=== PATIENT | female | born 1950 | race Caucasian/White ===

== ENCOUNTER 2018-10-01 12:13 | Emergency (ER) | payer MEDICARE, BC ==
[~2018-10-01] VITALS: Ht 154.9 cm; Wt 129.7 kg
[~2018-10-01 12:13] MED LIST: ACTOS PLUS PO; ASPIRIN LOW DOS81 MG PO; CARVEDILOL12.5 MG PO; COLACE100 MG PO; CYMBALTA30 MG PO; GABAPENTIN PO; GLIMEPIRIDE PO; HYDROCODONE PO; NORVASC5 MG PO; OXYBUTYNIN PO; QUINIPRIL; REMICADE INFUSION; SIMVASTATIN PO; SULINDAC200 MG PO; [UNRECOGNIZED DRUG - OTHER]; [UNRECOGNIZED DRUG - OTHER] PO; [UNRECOGNIZED DRUG - OTHER] PO; [UNRECOGNIZED DRUG - OTHER] PO
--- OUTSIDE RECORDS SUMMARY | 2018-10-01 12:20 | XMS REPORT | Continuity of Care Document ---
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 Phone [facility] [employer] Unavailable Unavailable Problems Problem Status Onset Date Classification Date Reported Comments Source 4644 MORBID OBESITY DIABETES HYPERTENSIO Active 11/02/2014 [facility] [id number], REFLUX Active 10/06/2014 [facility] Anxiety Active Problem 11/28/2014 [facility] Apnea, sleep Resolved Problem 11/28/2014 [facility] BMI 30+ - obesity Resolved Problem 11/28/2014 [facility] BP+ - Hypertension Resolved Problem 11/28/2014 [facility] Diabetes Resolved Problem 11/28/2014 [facility] Explanation of expected sequence of events Active Problem 11/28/2014 [facility] FH: hyperlipidemia Resolved Problem 11/28/2014 [facility] ADMINISTRTVE ENCOUNT NOS Active [facility] Medications Medication Details Route Status Patient Instructions Ordering Provider Order Date Source Cinnamon 500 mg oral capsule 1,000 mg=2 cap, PO, BID, # 100 cap, 0 Refill(s) Inactive 11/25/2014 [facility] simvastatin 40 mg oral tablet 40 mg=1 tab, PO, Bedtime, 0 Refill(s) Inactive 11/25/2014 [facility] carvedilol 6.25 mg, PO, BID, 0 Refill(s) Inactive 11/25/2014 [facility] Fish Oil 1000 mg oral capsule 1,000 mg=1 cap, PO, TID, 0 Refill(s) Inactive 11/25/2014 [facility] Docusate Sodium 100 MG Oral Capsule [Colace] 100 mg=1 cap, PO, Daily, 0 Refill(s) Active 11/25/2014 [facility] Potassium Chloride 10 MEQ Extended Release Tablet 10 mEq=1 tab, PO, BID, 0 Refill(s) Inactive 11/25/2014 [facility] Acetaminophen 325 MG / Hydrocodone Bitartrate 10 MG Oral Tablet [Celina 10/325] 1 tab, PO, Q6H, 0 Refill(s) Inactive 11/25/2014 [facility] valsartan 160 mg oral tablet 160 mg=1 tab, PO, Daily, 0 Refill(s) Inactive 11/25/2014 [facility] Metformin hydrochloride 850 MG / pioglitazone 15 MG Oral Tablet 1 tab, PO, BID, 0 Refill(s) Inactive 11/25/2014 [facility] Reglan 10 mg, 2 mL, Route: IVP, Drug form: INJ, Q6H, Dosing Weight 143.182, kg, PRN Nausea & Vomiting, Start date: 11/24/14 17:36:00, Duration: 30 day, Stop date: 12/24/14 17:35:00Notes: (Same as: Reglan) No Longer Active 11/24/2014 [facility] Lactated Ringers Injection IV 1,000 mL 1,000 mL, Rate: 80 ml/hr, Infuse over: 12.5 hr, Route: IV, Dosing Weight 143.182 kg, Total Volume: 1,000, Start date: 11/24/14 13:51:00, Duration: 30 day, Stop date: 12/24/14 13:50:00 No Longer Active 11/24/2014 [facility] Protonix 40 mg, Route: IVP, Daily, Dosing Weight 143.182, kg, Start date: 11/24/14 9:00:00, Duration: 30 day, Stop date: 12/23/14 9:00:00 No Longer Active 11/24/2014 [facility] Enoxaparin 30 mg, 0.3 mL, Route: SUB-Q, Drug form: INJ, Q12H, Dosing Weight 143.182, kg, Start date: 11/24/14 2:00:00, Duration: 30 day, Stop date: 12/23/14 21:00:00Notes: (Same as: Lovenox) No Longer Active 11/24/2014 [facility] Pepcid 20 mg, 2 mL, Route: IVP, Drug form: INJ, Q12H, Start date: 11/23/14 21:00:00, Duration: 30 day, Stop date: 12/23/14 9:00:00Notes: (Same as: Pepcid) Can be dilute in 5-10cc NS IVP: Slow IV push over at least 2 minutes. No Longer Active 11/24/2014 [facility] Hydralazine 10 mg, 0.5 mL, Route: IV, Drug form: INJ, ONCE, Dosing Weight 143.182, kg, Start date: 11/23/14 18:00:00, Stop date: 11/23/14 18:00:00Notes: (Same as: Apresoline) Push over 5 minutes Inactive 11/23/2014 [facility] Ofirmev 1,000 mg, 100 mL, Route: IV, Drug form: INJ, Q6H, Dosing Weight 143.182, kg, for > or=50 kg, Start date: 11/23/14 18:00:00, Duration: 2 day, Stop date: 11/25/14 12:00:00Notes: Infuse over 15 minutes Do not exceed 4gm/day of acetaminophen MEDICATION WASTE Product Size: 1000 mg Product Wasted: ___ mg No Longer Active 11/23/2014 [facility] Metoprolol 5 mg, 5 mL, Route: IVP, Drug form: INJ, Q6H, Dosing Weight 143.182, kg, Start date: 11/23/14 18:00:00, Duration: 30 day, Stop date: 12/23/14 12:00:00Notes: (Same as: Lopressor) Push over 2 minutes No Longer Active 11/23/2014 [facility] Insulin, Aspart, Human 8 unit, 0.08 mL, Route: SUB-Q, Drug form: SOLN, TID-Before Meals, Dosing Weight 143.182, kg, PRN Blood Glucose Results, Start date: 11/23/14 17:18:00, Duration: 30 day, Stop date: 12/23/14 17:17:00Notes: Roll in palms of hands gently; Do not shake vigorously. (Same as: NovoLOG) "single patient use only" Stable for 28 days at room temperature. Expires in days from Date No Longer Active 11/23/2014 [facility] Dextrose 50% Syringe 12.5 gm, 25 mL, Route: IVP, Drug Form: INJ, Dosing Weight 143.182, kg, PRN, PRN Blood Glucose Results, Start date: 11/23/14 17:18:00, Duration: 30 day, Stop date: 12/23/14 17:17:00 No Longer Active 11/23/2014 [facility] Glucagon 1 mg, Route: IM, Drug form: PDR/INJ, PRN, Dosing Weight 143.182, kg, PRN Blood Glucose Results, Start date: 11/23/14 17:18:00, Duration: 30 day, Stop date: 12/23/14 17:17:00 No Longer Active 11/23/2014 [facility] gabapentin 800 MG Oral Tablet 800 mg, 2 cap, Route: PO, Drug form: CAP, BID, Dosing Weight 143.182, kg, Start date: 11/23/14 17:00:00, Duration: 30 day, Stop date: 12/23/14 9:00:00Notes: (Same as: Neurontin) No Longer Active 11/23/2014 [facility] tramadol hydrochloride 50 MG Oral Tablet 50 mg=1 tab, PO, Q6H, PRN See Nurse's Notes | Pain Score 3-6, # 40 tab, 0 Refill(s) Active 11/23/2014 [facility] Hydromorphone 15 mg, 30 mL, Route: IV, Initial Loading Dose: 0.4mg, [employer] Dose: 0.2 mg, [employer] Lockout: 10 minutes, Continuous Basal Rate: 0 mg, 4 Hour Limit (In MG): 6, Drug Form: INJ, Continuous, Start date: 11/23/14 14 :00:00, Duration: 30 day, Stop date: 12/23/14 13:...Notes: (Same as: Dilaudid) conc=0.5 mg/ml Hydromorphone [employer] Dose: ;Delay: ;Basal: No Longer Active 11/23/2014 [facility] Sodium Chloride 0.9% IV 25 mL, Route: IV, Start date: 11/23/14 13:49:00, Duration: 30 day, Stop date: 12/23/14 13:48:00, PRN Line Flush No Longer Active 11/23/2014 [facility] BD Normal Saline Flush 10 mL, Route: IV, Drug Form: INJ, PRN, PRN Line Flush, Start date: 11/23/14 13:49:00, Duration: 30 day, Stop date: 12/23/14 13:48:00Notes: (Same as: BD Posiflush) No Longer Active 11/23/2014 [facility] Naloxone 0.04 mg, 0.1 mL, Route: IVP, Drug form: INJ, Q2MIN, Dosing Weight 143.182, kg, PRN Narcotic Reversal, Start date: 11/23/14 13:37:00, Duration: 30 day, Stop date: 12/23/14 13:36:00Notes: Same as Narcan No Longer Active 11/23/2014 [facility] Hydromorphone 0.5 mg, 0.25 mL, Route: IV, Drug form: INJ, Q3H, Dosing Weight 143.182, kg, PRN Pain Score 7-10, Start date: 11/23/14 13:37:00, Duration: 30 day, Stop date: 12/23/14 13:36:00Notes: (Same as: Dilaudid) No Longer Active 11/23/2014 [facility] tramadol hydrochloride 50 MG Oral Tablet 50 mg, 1 tab, Route: PO, Drug form: TAB, Q6H, Dosing Weight 143.182, kg, PRN See Nurse's Notes, Start date: 11/23/14 13:37:00, Stop date: 12/23/14 13:36:00, Pain Score 3-6Notes: Not to exceed 400mg/day. (Same As: Ultram) No Longer Active 11/23/2014 [facility] Ondansetron 4 mg, 2 mL, Route: IVP, Drug form: INJ, Q6H, Dosing Weight 143.182, kg, PRN Nausea & Vomiting, Start date: 11/23/14 13:37:00, Duration: 30 day, Stop date: 12/23/14 13:36:00Notes: (Same as: Zofran) MEDICATION WASTE Product Size: 4 mg Product Wasted: ___ mg No Longer Active 11/23/2014 [facility] Calcium Chloride 0.0014 MEQ/ML / Potassium Chloride 0.004 MEQ/ML / Sodium Chloride 0.103 MEQ/ML / Sodium Lactate 0.028 MEQ/ML Injectable Solution 1,000 mL, Rate: 125 ml/hr, Infuse over: 8 hr, Route: IV, Dosing Weight 143.182 kg, Total Volume: 1,000, Start date: 11/23/14 13:37:00, Stop date: 11/24/14 13:36:00 No Longer Active 11/23/2014 [facility] Albuterol 0.83 MG/ML Inhalant Solution 2.49 mg, 3 mL, Route: NEB, Drug form: SOLN, PRN, Dosing Weight 143.182, kg, PRN Respiratory Protocol, Start date: 11/23/14 11:08:00, Duration: 30 day, Stop date: 12/23/14 11:07:00Notes: SEE RT DOCUMENTATION (Same as: Proventil) Inactive 11/23/2014 [facility] Midazolam 1 mg, 1 mL, Route: IVP, Drug form: INJ, Q5Min, Dosing Weight 143.182, kg, PRN Anxiety, Start date: 11/23/14 11:08:00, Duration: 2 doses or times, Stop date: Limited # of timesNotes: (Same as: Versed) MEDICATION WASTE Product Size: 2 mg Product Wasted: ___ mg Inactive 11/23/2014 [facility] Ondansetron 4 mg, 2 mL, Route: IVP, Drug form: INJ, ONCE, Dosing Weight 143.182, kg, PRN Nausea & Vomiting, Start date: 11/23/14 11:08:00Notes: (Same as: Vicki) MEDICATION WASTE Product Size: 4 mg Product Wasted: ___ mg Inactive 11/23/2014 [facility] Dexamethasone 4 mg, 1 mL, Route: IVP, Drug form: INJ, ONCE, Dosing Weight 143.182, kg, PRN Nausea & Vomiting, Start date: 11/23/14 11:08:00Notes: Concentration: 4mg/ml Inactive 11/23/2014 [facility] Diphenhydramine 12.5 mg, 0.25 mL, Route: IVP, Drug form: INJ, Q6H, Dosing Weight 143.182, kg, PRN Itching, Start date: 11/23/14 11:08:00, Duration: 30 day, Stop date: 12/23/14 11:07:00Notes: (Same as: Benadryl) Inactive 11/23/2014 [facility] Ephedrine 5 mg, 1 mL, Route: IVP, Drug form: INJ, Q5Min, Dosing Weight 143.182, kg, PRN Low Blood Pressure, Start date: 11/23/14 11:08:00, Duration: 30 day, Stop date: 12/23/14 11:07:00Notes: final concentrati on 5 mg/mL Inactive 11/23/2014 [facility] Naloxone 0.04 mg, 0.1 mL, Route: IVP, Drug form: INJ, Q2MIN, Dosing Weight 143.182, kg, PRN Narcotic Reversal, Start date: 11/23/14 11:08:00, Duration: 8 doses or times, Stop date: Limited # of timesNotes: Same as Narcan Inactive 11/23/2014 [facility] Meperidine 12.5 mg, 0.25 mL, Route: IVP, Drug form: INJ, Q30Min, Dosing Weight 143.182, kg, PRN Other -See Comment, For shivering, Start date: 11/23/14 11:08:00, Duration: 2 doses or times, Stop date: Limited # of timesNotes: (Same As: Demerol) Inactive 11/23/2014 [facility] Sodium Chloride 0.154 MEQ/ML Injectable Solution 1,000 mL, Rate: 125 ml/hr, Infuse over: 8 hr, Route: IV, Dosing Weight 143.182 kg, Total Volume: 1,000, Start date: 11/23/14 11:08:00, Duration: 30 day, Stop date: 12/23/14 11:07:00 Inactive 11/23/2014 [facility] Racepinephrine 11.25 mg, 0.5 mL, Route: NEB, Drug Form: SOLN, Dosing Weight 143.182, kg, PRN, PRN Shortness of breath, Start date: 11/23/14 11:08:00, Duration: 30 day, Stop date: 12/23/14 11:07:00Notes: (racepinephrine *2.25% inh 0.5ml SOLN) (Same as:S2) Inactive 11/23/2014 [facility] Morphine 2 mg, 0.2 mL, Route: IVP, Drug form: INJ, Q5Min, Dosing Weight 143.182, kg, PRN Pain Score 4-6, Start date: 11/23/14 11:08:00, Duration: 5 doses or times, Stop date: Limited # of timesNotes: (Same as :MORPhine Sulfate) Inactive 11/23/2014 [facility] Fentanyl 25 microgram, 0.5 mL, Route: IVP, Drug form: INJ, Q5Min, Dosing Weight 143.182, kg, PRN Pain Score 4-6, Start date: 11/23/14 11:08:00, Duration: 4 doses or times, Stop date: Limited # of timesNotes: (Same as: Sublimaze) Preservative free. Inactive 11/23/2014 [facility] Hydromorphone 0.5 mg, 0.25 mL, Route: IVP, Drug form: INJ, Q5Min, Dosing Weight 143.182, kg, PRN Pain Score 7-10, Start date: 11/23/14 11:08:00, Duration: 4 doses or times, Stop date: Limited # of timesNotes: (Same as: Dilaudid) Inactive 11/23/2014 [facility] Labetalol 10 mg, 2 mL, Route: IVP, Drug form: INJ, Q5Min, Dosing Weight 143.182, kg, PRN Elevated BP, Start date: 11/23/14 11:08:00, Duration: 5 doses or times, Stop date: Limited # of timesNotes: (Same as: Normmili dynadam, Trandate) Push over 2 minutes Give bolus over 2-3 minutes. Inactive 11/23/2014 [facility] Acetaminophen 1,000 mg, 100 mL, Route: IVPB, Drug form: INJ, ONCE, Dosing Weight 143.182, kg, PRN Pain Score 1-3, Start date: 11/23/14 11:08:00, Duration: 1 doses or times, Stop date: Limited # of timesNotes: Infuse over 15 minutes Do not exceed 4gm/day of acetaminophen MEDICATION WASTE Product Size: 1000 mg Product Wasted: ___ mg Inactive 11/23/2014 [facility] gabapentin 800 MG Oral Tablet 800 mg=1 tab, PO, BID, 0 Refill(s) Active 11/23/2014 [facility] Hydrochlorothiazide 25 MG / valsartan 160 MG Oral Tablet 1 tab, PO, Daily, 0 Refill(s) Inactive 11/23/2014 [facility] carvedilol 6.25 mg oral tablet 6.25 mg=1 tab, PO, BID, 0 Refill(s) Inactive 11/23/2014 [facility] Ancef 3 gm, 100 mL, Route: IVPB, Drug form: INJ, PRE OP, Start date: 11/23/14 6:00:00, Stop date: 11/23/14 23:00:00Notes: Same as: Ancef No Longer Active 11/23/2014 [facility] Allergies, Adverse Reactions, Alerts Substance Category Reaction Severity Reaction type Status Date Reported Comments Source codeine Assertion Drug allergy Active [facility] quinapril Assertion Drug allergy Active [facility] Immunizations No Data Provided for This Section Results Order Name Results Value Reference Range Date Interpretation Comments Source ELECTROLYTES AGAP 12.9 10.0 - 20.0 11/24/2014 [facility] ELECTROLYTES Glucose Lvl 124 70 - 99 11/24/2014 [facility] ELECTROLYTES BUN 15 7 - 22 11/24/2014 [facility] ELECTROLYTES CO2 26 24 - 32 11/24/2014 [facility] ELECTROLYTES Calcium Lvl 8.3 8.5 - 10.5 11/24/2014 [facility] ELECTROLYTES Potassium Lvl 3.9 3.5 - 5.1 11/24/2014 [facility] ELECTROLYTES Chloride Lvl 106 95 - 109 11/24/2014 [facility] ELECTROLYTES eGFR 67 11/24/2014 Result Comment: The eGFR is calculated using the CKD-EPI formula. In most young, healthy individuals the eGFR will be >90 mL/min/1.73m2. The eGFR declines with age. An eGFR of 60-89 may be normal in some populations, particularly the elderly, for whom the CKD-EPI formula has not been extensively validated. Use of the eGFR is not recommended in the following populations:

Individuals with unstable creatinine concentrations, including patients and those with serious co-morbid conditions.

Patients with extremes in muscle mass or diet.

The data above are obtained from the National Kidney Disease Education Program (NKDEP) which additionally recommends that when the eGFR is used in patients with extremes of body mass index for purposes of drug dosing, the eGFR should be multiplied by the estimated BMI. [facility] ELECTROLYTES Creatinine Lvl 0.9 0.5 - 1.4 11/24/2014 [facility] ELECTROLYTES Sodium Lvl 141 135 - 145 11/24/2014 [facility] HEMATOLOGY Hct 30.5 36.0 - 48.0 11/24/2014 [facility] HEMATOLOGY WBC 8.6 3.7 - 10.4 11/24/2014 [facility] HEMATOLOGY MCV 76.7 80.0 - 98.0 11/24/2014 [facility] HEMATOLOGY Hgb 9.6 12.0 - 16.0 11/24/2014 [facility] HEMATOLOGY RBC 3.98 4.20 - 5.40 11/24/2014 [facility] HEMATOLOGY MCHC 31.5 32.0 - 36.0 11/24/2014 [facility] HEMATOLOGY MCH 24.2 27.0 - 31.0 11/24/2014 [facility] HEMATOLOGY MPV 9.7 7.4 - 10.4 11/24/2014 [facility] HEMATOLOGY Platelet 163 133 - 450 11/24/2014 [facility] HEMATOLOGY RDW 17.7 11.5 - 14.5 11/24/2014 [facility] HEMATOLOGY Segs 75.9 45.0 - 75.0 11/24/2014 [facility] HEMATOLOGY Lymphocytes # 1.3 1.0 - 5.5 11/24/2014 [facility] HEMATOLOGY Monocytes 7.4 2.0 - 12.0 11/24/2014 [facility] HEMATOLOGY Segs-Bands # 6.5 1.5 - 8.1 11/24/2014 [facility] HEMATOLOGY Basophils 0.1 0.0 - 1.0 11/24/2014 [facility] HEMATOLOGY Lymphocytes 15.5 20.0 - 40.0 11/24/2014 [facility] HEMATOLOGY Eosinophils 1.1 0.0 - 4.0 11/24/2014 [facility] HEMATOLOGY Microcyte 1+ *ABN* (11/24/14 4:11 AM) None Seen 11/24/2014 [facility] HEMATOLOGY Eosinophils # 0.1 0.0 - 0.5 11/24/2014 [facility] HEMATOLOGY Monocytes # 0.6 0.0 - 0.8 11/24/2014 [facility] CARDIAC ENZYMES CK MB Index 1.0 0.0 - 2.5 11/23/2014 [facility] CARDIAC ENZYMES CK MB 2.2 0.5 - 3.6 11/23/2014 [facility] CARDIAC ENZYMES Troponin-I <0.02 0.00 - 0.40 11/23/2014 [facility] CARDIAC ENZYMES Total CK 210 12 - 191 11/23/2014 [facility] BLOOD BANK RESULTS Antibody Scrn Negative (11/23/14 10:11 AM) 11/23/2014 [facility] BLOOD BANK RESULTS ABO/Rh O POS 11/23/2014 [facility] CHEM PANEL Vitamin D, 25-OH, Total 16 30 - 100 11/09/2014 [facility] CHEM PANEL B/C Ratio 31 6 - 25 11/09/2014 [facility] CHEM PANEL AGAP 11.9 10.0 - 20.0 11/09/2014 [facility] CHEM PANEL Globulin 4.2 2.0 - 4.0 11/09/2014 [facility] CHEM PANEL A/G Ratio 0.9 0.7 - 1.6 11/09/2014 [facility] CHEM PANEL Albumin Lvl 3.8 3.5 - 5.0 11/09/2014 [facility] CHEM PANEL Glucose Lvl 66 70 - 99 11/09/2014 [facility] CHEM PANEL CO2 26 24 - 32 11/09/2014 [facility] CHEM PANEL BUN 31 7 - 22 11/09/2014 [facility] CHEM PANEL Bili Total 0.3 0.2 - 1.3 11/09/2014 [facility] CHEM PANEL Alk Phos 84 39 - 136 11/09/2014 [facility] CHEM PANEL Total Protein 8.0 6.4 - 8.4 11/09/2014 [facility] CHEM PANEL ALT 16 0 - 65 11/09/2014 [facility] CHEM PANEL AST 9 0 - 37 11/09/2014 [facility] CHEM PANEL eGFR 60 11/09/2014 Result Comment: The eGFR is calculated using the CKD-EPI formula. In most young, healthy individuals the eGFR will be >90 mL/min/1.73m2. The eGFR declines with age. An eGFR of 60-89 may be normal in some populations, particularly the elderly, for whom the CKD-EPI formula has not been extensively validated. Use of the eGFR is not recommended in the following populations:

Individuals with unstable creatinine concentrations, including patients and those with serious co-morbid conditions.

Patients with extremes in muscle mass or diet.

The data above are obtained from the National Kidney Disease Education Program (NKDEP) which additionally recommends that when the eGFR is used in patients with extremes of body mass index for purposes of drug dosing, the eGFR should be multiplied by the estimated BMI. [facility] CHEM PANEL Calcium Lvl 8.8 8.5 - 10.5 11/09/2014 [facility] CHEM PANEL Chloride Lvl 108 95 - 109 11/09/2014 [facility] CHEM PANEL Creatinine Lvl 1.0 0.5 - 1.4 11/09/2014 [facility] CHEM PANEL Sodium Lvl 142 135 - 145 11/09/2014 [facility] CHEM PANEL Potassium Lvl 3.9 3.5 - 5.1 11/09/2014 [facility] HEMATOLOGY PTT 31.3 22.9 - 35.8 11/09/2014 [facility] HEMATOLOGY PT 13.1 12.0 - 14.7 11/09/2014 [facility] HEMATOLOGY INR 0.99 0.85 - 1.17 11/09/2014 [facility] HEMATOLOGY RDW 17.3 11.5 - 14.5 11/09/2014 [facility] MCHC 31.0 32.0 - 36.0 11/09/2014 [facility] HEMATOLOGY Platelet 247 133 - 450 11/09/2014 [facility] HEMATOLOGY MPV 9.1 7.4 - 10.4 11/09/2014 [facility] HEMATOLOGY MCV 77.7 80.0 - 98.0 11/09/2014 [facility] HEMATOLOGY MCH 24.1 27.0 - 31.0 11/09/2014 [facility] HEMATOLOGY Hgb 9.9 12.0 - 16.0 11/09/2014 [facility] HEMATOLOGY Hct 31.8 36.0 - 48.0 11/09/2014 [facility] HEMATOLOGY WBC 7.8 3.7 - 10.4 11/09/2014 [facility] HEMATOLOGY RBC 4.09 4.20 - 5.40 11/09/2014 [facility] HEMATOLOGY Eosinophils # 0.3 0.0 - 0.5 11/09/2014 [facility] HEMATOLOGY Monocytes # 0.7 0.0 - 0.8 11/09/2014 [facility] HEMATOLOGY Microcyte 1+ *ABN* (11/09/14 2:43 PM) None Seen 11/09/2014 [facility] HEMATOLOGY Basophils # 0.0 0.0 - 0.2 11/09/2014 [facility] HEMATOLOGY Lymphocytes 27.7 20.0 - 40.0 11/09/2014 [facility] HEMATOLOGY Segs 59.2 45.0 - 75.0 11/09/2014 [facility] HEMATOLOGY Basophils 0.3 0.0 - 1.0 11/09/2014 [facility] HEMATOLOGY Segs-Bands # 4.6 1.5 - 8.1 11/09/2014 [facility] HEMATOLOGY Lymphocytes # 2.2 1.0 - 5.5 11/09/2014 [facility] HEMATOLOGY Monocytes 8.4 2.0 - 12.0 11/09/2014 [facility] HEMATOLOGY Eosinophils 4.4 0.0 - 4.0 11/09/2014 [facility] PARATHYROID PROFILE PTH Intact 67.4 11.1 - 79.5 11/09/2014 [facility] SPECIAL CHEMISTRY Hgb A1C 6.4 <=5.6 % 11/09/2014 [facility] URINE AND STOOL UA Urobilinogen <=1.0 mg/dL 0.1 - 1.0 11/09/2014 [facility] URINE AND STOOL Micro? Performed *NA* (11/09/14 2:43 PM) 11/09/2014 [facility] URINE AND STOOL UA Sq Epi Few /LPF Few /LPF 11/09/2014 [facility] URINE AND STOOL UA Leuk Est Negative (11/09/14 2:43 PM) Negative 11/09/2014 [facility] URINE AND STOOL UA Nitrite Negative (11/09/14 2:43 PM) Negative 11/09/2014 [facility] URINE AND STOOL UA Bacteria Occasional /HPF None Seen /HPF 11/09/2014 [facility] URINE AND STOOL UA Hyal Cast 3 0 - 2 11/09/2014 [facility] URINE AND STOOL UA Mucus Few /LPF None Seen /LPF 11/09/2014 [facility] URINE AND STOOL UA Protein Negative mg/dL Negative mg/dL 11/09/2014 [facility] URINE AND STOOL UA pH 5.0 5.0 - 8.0 11/09/2014 [facility] URINE AND STOOL UA Spec Grav 1.015 <=1.030 11/09/2014 [facility] URINE AND STOOL UA Bili Negative *NA* (11/09/14 2:43 PM) Negative 11/09/2014 [facility] [facility] URINE AND STOOL UA Ketones Negative mg/dL Negative mg/dL 11/09/2014 [facility] URINE AND STOOL UA Glucose Negative mg/dL Negative mg/dL 11/09/2014 [facility] URINE AND STOOL UA Blood Negative (11/09/14 2:43 PM) Negative 11/09/2014 [facility] URINE AND STOOL UA WBC 1 0 - 5 11/09/2014 [facility] URINE AND STOOL UA Color Yellow *NA* (11/09/14 2:43 PM) Yellow 11/09/2014 [facility] URINE AND STOOL UA Turbidity Slight *ABN* (11/09/14 2:43 PM) Clear 11/09/2014 [facility] Pathology Reports No Data Provided for This Section Diagnostic Reports Report Value Date Source Chest 2 views DX Exam: Two-view chest x-ray Reason for Exam: Coughing Comparison Exam: None Discussion: Cardiomediastinal silhouette is within normal limits. Both hemidiaphragms well visualized. Mild central vascular congestion. No appreciable pleural effusion. No focal lung consolidations. Trachea is midline. Mild multilevel degenerative disc disease seen within the thoracic spine. Impression: 1. Mild central vascular congestion. 11/09/2014 [facility] Consultation Notes No Data Provided for This Section Discharge Summaries No Data Provided for This Section History and Physicals No Data Provided for This Section Vital Signs Vital Sign Value Date Comments Source Temperature Oral (F) 98.2 F 11/25/2014 [facility] Heart Rate 80 11/25/2014 [facility] Respitory Rate 18 11/25/2014 [facility] Systolic (mm Hg) 145 11/25/2014 [facility] Diastolic (mm Hg) 78 11/25/2014 [facility] Systolic (mm Hg) 144 11/25/2014 [facility] Diastolic (mm Hg) 59 11/25/2014 [facility] Respitory Rate 18 11/25/2014 [facility] Heart Rate 67 11/25/2014 [facility] Temperature Oral (F) 97.6 F 11/25/2014 [facility] Systolic (mm Hg) 150 11/25/2014 [facility] Diastolic (mm Hg) 74 11/25/2014 [facility] Respitory Rate 18 11/25/2014 [facility] Temperature Oral (F) 98.3 F 11/25/2014 [facility] Heart Rate 78 11/25/2014 [facility] Height 154.94 cm 11/09/2014 [facility] Weight 143.182 11/09/2014 [facility] BMI Calculated 59.64 11/09/2014 [facility] Encounters Location Location Details Encounter Type Encounter Number Reason For Visit Attending Provider ADM Date DC Date Status Source [facility] Inpatient [id number] Ismael Krause 11/23/2014 11/25/2014 [facility] Procedures Procedure Code Date Perfomer Comments Source Gastric bypass operation [id number] 11/23/2014 [facility] Cholecystectomy [id number] [facility] Assessment and Plan Assessment and Plan Date Source Extracted from:Title: Surgery Note Author: Luís Brunner (Fellow) Date: 11/25/14 Progress Daily [facility] Completed: , NOV 25, 2014, 06:18 by Luís Brunner (Fellow) RM: [id number] - [id number], [id number] ANDREA, JOEY WHITT 64y (: 1950) F Attending: Ismael Krause MD Service: General Surgery Service Reason for Admission: 4644 MORBID OBESITY DIABETES HYPERTENSION Working DRG: Other factors influencing health status Code status: Full Code [Ordered] Current diet: Isolation: None Documented Allergies: quinapril, codeine SUBJECTIVE Pt doing better this AM than yesterday. Pain controlled. No further nausea, and no episodes of emesis. No F/S/C. Tolerating fulls. +amb, +urination. OBJECTIVE Gen: AAOx3, NAD CV: RRR Lungs: Symmetric expansion, non-labored Abd: Soft, ND, ATTP. No guarding or rebound. Inc sites C/D/I Ext: No C/C/E ASSESSMENT and EXAM 64 y/o female s/p LRYGB (POD #2) - Pain - HTN, NIDDM, HLD, ALEX PLAN and TREATMENT - Pain controlled with PO pain meds. - Tolerating full liquids. - Pertinent home meds restarted. - Dispo. Plan to D/C pt home later today. 11/25/2014 [facility] Plan of Care No Data Provided for This Section Social History Social History Date Source Social History TypeResponse Smoking Status Never smoker; Exposure to Tobacco Smoke None; Cigarette Smoking Last 365 Days No; Reg Smoking Cessation Counseling No 11/23/2014 [facility] Family History No Data Provided for This Section Advance Directives No Data Provided for This Section Functional Status No Data Provided for This Section
--- OUTSIDE RECORDS SUMMARY | 2018-10-01 12:21 | XMS REPORT | Summary of Care ---
Author Author [facility] Organization [facility] Address Unknown Phone Unavailable Encounter RUSH Plascencia(ANDRE) [id number] Date(s): 11/23/14 - 11/25/14 [id number] [place] [address]- Discharge Disposition: Home Attending Physician: Ismael Krause MD Admitting Physician: Ismael Krause MD Referring Physician: Ismael Krause MD Vital Signs 1 2 3 Most recent to oldest [Reference Range]: 154.94 cm (11/09/14 1:23 PM) Height 1 2 3 Most recent to oldest [Reference Range]: 98.2 DegF (11/25/14 8:00 AM) 97.6 DegF (11/25/14 4:00 AM) 98.3 DegF (11/25/14 12:00 AM) Temperature Oral [96.4-99.1 DegF] 1 2 3 Most recent to oldest [Reference Range]: 145/78 mmHg *HI* (11/25/14 8:00 AM) 144/59 mmHg *HI* (11/25/14 4:00 AM) 150/74 mmHg *HI* (11/25/14 12:00 AM) Blood Pressure [90-140/60-90 mmHg] 1 2 3 Most recent to oldest [Reference Range]: 18 BRMIN (11/25/14 8:00 AM) 18 BRMIN (11/25/14 4:00 AM) 18 BRMIN (11/25/14 12:00 AM) Respiratory Rate [14-20 BRMIN] 1 2 3 Most recent to oldest [Reference Range]: 80 bpm (11/25/14 8:00 AM) 67 bpm (11/25/14 4:00 AM) 78 bpm (11/25/14 12:00 AM) Peripheral Pulse Rate [60-100 bpm] 1 2 3 Most recent to oldest [Reference Range]: 143.182 kg (11/09/14 1:23 PM) Weight 1 2 3 Most recent to oldest [Reference Range]: 59.64 m2 (11/09/14 1:23 PM) Body Mass Index Problem List Condition Effective Dates Status Health Status Informant Anxiety(Confirmed) Active Apnea, Resolved sleep(Confirmed) BMI 30+ - Resolved obesity(Confirmed) BP+ - Resolved Hypertension(Confirm ed) Diabetes(Confirmed) Resolved Explanation of Active expected sequence of events(Confirmed) FH: Resolved hyperlipidemia(Confi rmed) Allergies, Adverse Reactions, Alerts Substance Reaction Severity Status codeine Active quinapril Active Medications acetaminophen 1,000 mg, 100 mL, Route: IVPB, Drug form: INJ, ONCE, Dosing Weight 143.182, kg, PRN Pain Score 1-3, Start date: 11/23/14 11:08:00, Duration: 1 doses or times, S top date: Limited # of times Notes: Infuse over 15 minutesDo not exceed 4gm/day of acetaminophen MEDICAT ION WASTE Product Size: 1000 mgProduct Wasted: ___ mg Start Date: 11/23/14 Stop Date: 11/23/14 Status: Discontinued albuterol 0.083% inhalation solution 2.49 mg, 3 mL, Route: NEB, Drug form: SOLN, PRN, Dosing Weight 143.182, kg, PRN Respiratory Protocol, Start date: 11/23/14 11:08:00, Duration: 30 day, Stop date : 12/23/14 11:07:00 Notes: SEE RT DOCUMENTATION (Same as: Proventil) Start Date: 11/23/14 Stop Date: 11/23/14 Status: Discontinued albuterol 0.083% inhalation solution 2.49 mg, 3 mL, Route: NEB, Drug form: SOLN, Q20Min, Dosing Weight 143.182, kg, P RN Wheezing, Priority: STAT, Start date: 11/23/14 11:08:00, Duration: 30 day, St op date: 12/23/14 11:07:00 Notes: SEE RT DOCUMENTATION (Same as: Proventil) Start Date: 11/23/14 Stop Date: 11/23/14 Status: Discontinued Ancef 3 gm, 100 mL, Route: IVPB, Drug form: INJ, PRE OP, Start date: 11/23/14 6:00:00, Stop date: 11/23/14 23:00:00 Notes: Same as: Ancef Start Date: 11/23/14 Stop Date: 11/25/14 Status: Discontinued BD Normal Saline Flush 10 mL, Route: IV, Drug Form: INJ, PRN, PRN Line Flush, Start date: 11/23/14 13:4 9:00, Duration: 30 day, Stop date: 12/23/14 13:48:00 Notes: (Same as: BD Posiflush) Start Date: 11/23/14 Stop Date: 11/25/14 Status: Discontinued BD Normal Saline Flush 5 mL, Route: IV, Drug Form: INJ, PRN, PRN Line Flush, Start date: 11/23/14 13:49 :00, Duration: 30 day, Stop date: 12/23/14 13:48:00 Notes: (Same as: BD Posiflush) Start Date: 11/23/14 Stop Date: 11/25/14 Status: Discontinued carvedilol 6.25 mg, PO, BID, 0 Refill(s) Start Date: 11/25/14 Stop Date: 11/25/14 Status: Discontinued carvedilol 6.25 mg oral tablet 6.25 mg=1 tab, PO, BID, 0 Refill(s) Start Date: 11/23/14 Stop Date: 11/23/14 Status: Discontinued Cinnamon 500 mg oral capsule 1,000 mg=2 cap, PO, BID, # 100 cap, 0 Refill(s) Start Date: 11/25/14 Stop Date: 11/25/14 Status: Discontinued Colace 100 mg oral capsule 100 mg=1 cap, PO, Daily, 0 Refill(s) Start Date: 11/25/14 Status: Ordered dexamethasone 4 mg, 1 mL, Route: IVP, Drug form: INJ, ONCE, Dosing Weight 143.182, kg, PRN Regan sea & Vomiting, Start date: 11/23/14 11:08:00 Notes: Concentration: 4mg/ml Start Date: 11/23/14 Stop Date: 11/23/14 Status: Discontinued Dextrose 50% Syringe 12.5 gm, 25 mL, Route: IVP, Drug Form: INJ, Dosing Weight 143.182, kg, PRN, PRN Blood Glucose Results, Start date: 11/23/14 17:18:00, Duration: 30 day, Stop idania e: 12/23/14 17:17:00 Start Date: 11/23/14 Stop Date: 11/25/14 Status: Discontinued Dextrose 50% Syringe 25 gm, 50 mL, Route: IVP, Drug Form: INJ, Dosing Weight 143.182, kg, PRN, PRN Bl ood Glucose Results, Start date: 11/23/14 17:18:00, Duration: 30 day, Stop date: 12/23/14 17:17:00 Start Date: 11/23/14 Stop Date: 11/25/14 Status: Discontinued diphenhydrAMINE 12.5 mg, 0.25 mL, Route: IVP, Drug form: INJ, Q6H, Dosing Weight 143.182, kg, [place] N Itching, Start date: 11/23/14 11:08:00, Duration: 30 day, Stop date: 12/23/14 11:07:00 Notes: (Same as: Benadryl) Start Date: 11/23/14 Stop Date: 11/23/14 Status: Discontinued enoxaparin 30 mg, 0.3 mL, Route: SUB-Q, Drug form: INJ, Q12H, Dosing Weight 143.182, kg, St art date: 11/24/14 2:00:00, Duration: 30 day, Stop date: 12/23/14 21:00:00 Notes: (Same as: Lovenox) Start Date: 11/24/14 Stop Date: 11/25/14 Status: Discontinued ePHEDrine 5 mg, 1 mL, Route: IVP, Drug form: INJ, Q5Min, Dosing Weight 143.182, kg, PRN Lo w Blood Pressure, Start date: 11/23/14 11:08:00, Duration: 30 day, Stop date: 11:07:00 Notes: final concentration 5 mg/mL Start Date: 11/23/14 Stop Date: 11/23/14 Status: Discontinued fentaNYL 25 microgram, 0.5 mL, Route: IVP, Drug form: INJ, Q5Min, Dosing Weight 143.182, kg, PRN Pain Score 4-6, Start date: 11/23/14 11:08:00, Duration: 4 doses or time s, Stop date: Limited # of times Notes: (Same as: Sublimaze) Preservative free. Start Date: 11/23/14 Stop Date: 11/23/14 Status: Discontinued Fish Oil 1000 mg oral capsule 1,000 mg=1 cap, PO, TID, 0 Refill(s) Start Date: 11/25/14 Stop Date: 11/25/14 Status: Discontinued gabapentin 400 mg oral capsule 800 mg, 2 cap, Route: PO, Drug form: CAP, BID, Dosing Weight 143.182, kg, Start date: 11/23/14 17:00:00, Duration: 30 day, Stop date: 12/23/14 9:00:00 Notes: (Same as: Neurontin) Start Date: 11/23/14 Stop Date: 11/25/14 Status: Discontinued gabapentin 800 mg oral tablet 800 mg=1 tab, PO, BID, 0 Refill(s) Start Date: 11/23/14 Status: Ordered glucagon 1 mg, Route: IM, Drug form: PDR/INJ, PRN, Dosing Weight 143.182, kg, PRN Blood G lucose Results, Start date: 11/23/14 17:18:00, Duration: 30 day, Stop date: 04/08 17:17:00 Start Date: 11/23/14 Stop Date: 11/25/14 Status: Discontinued hydrALAZINE 10 mg, 0.5 mL, Route: IV, Drug form: INJ, ONCE, Dosing Weight 143.182, kg, Start date: 11/23/14 18:00:00, Stop date: 11/23/14 18:00:00 Notes: (Same as: Apresoline)Push over 5 minutes Start Date: 11/23/14 Stop Date: 11/23/14 Status: Completed hydrochlorothiazide-valsartan 25 mg-160 mg oral tablet 1 tab, PO, Daily, 0 Refill(s) Start Date: 11/23/14 Stop Date: 11/23/14 Status: Discontinued hydromorphone 0.5 mg, 0.25 mL, Route: IV, Drug form: INJ, Q3H, Dosing Weight 143.182, kg, PRN Pain Score 7-10, Start date: 11/23/14 13:37:00, Duration: 30 day, Stop date: 04/08 13:36:00 Notes: (Same as: Dilaudid) Start Date: 11/23/14 Stop Date: 11/25/14 Status: Discontinued hydromorphone 0.5 mg, 0.25 mL, Route: IVP, Drug form: INJ, Q5Min, Dosing Weight 143.182, kg, P RN Pain Score 7-10, Start date: 11/23/14 11:08:00, Duration: 4 doses or times, S top date: Limited # of times Notes: (Same as: Dilaudid) Start Date: 11/23/14 Stop Date: 11/23/14 Status: Discontinued HYDROmorphone 0.5mg/mL MACARONI MAKER (15mg/30 mL) 15 mg 15 mg, 30 mL, Route: IV, Initial Loading Dose: 0.4mg, MACARONI MAKER Dose: 0.2 mg, MACARONI MAKER Lock out: 10 minutes, Continuous Basal Rate: 0 mg, 4 Hour Limit (In MG): 6, Drug Form : INJ, Continuous, Start date: 11/23/14 14:00:00, Duration: 30 day, Stop date: 13:... Notes: (Same as: Dilaudid) conc=0.5 mg/mlHydromorphone MACARONI MAKER Dose: ;Delay: ;Basal: Start Date: 11/23/14 Stop Date: 11/24/14 Status: Discontinued insulin aspart 8 unit, 0.08 mL, Route: SUB-Q, Drug form: SOLN, TID-Before Meals, Dosing Weight 143.182, kg, PRN Blood Glucose Results, Start date: 11/23/14 17:18:00, Duration: 30 day, Stop date: 12/23/14 17:17:00 Notes: Roll in palms of hands gently; Do not shake vigorously. (Same as: NovoLO G)"single patient use only" Stable for 28 days at room temperature.Expires in _ ____ days from Date Start Date: 11/23/14 Stop Date: 11/25/14 Status: Discontinued insulin aspart 10 unit, 0.1 mL, Route: SUB-Q, Drug form: SOLN, TID-Before Meals, Dosing Weight 143.182, kg, PRN Blood Glucose Results, Start date: 11/23/14 17:18:00, Duration: 30 day, Stop date: 12/23/14 17:17:00 Notes: Roll in palms of hands gently; Do not shake vigorously. (Same as: NovoLO G)"single patient use only" Stable for 28 days at room temperature.Expires in _ ____ days from Date Start Date: 11/23/14 Stop Date: 11/25/14 Status: Discontinued insulin aspart 4 unit, 0.04 mL, Route: SUB-Q, Drug form: SOLN, TID-Before Meals, Dosing Weight 143.182, kg, PRN Blood Glucose Results, Start date: 11/23/14 17:18:00, Duration: 30 day, Stop date: 12/23/14 17:17:00 Notes: Roll in palms of hands gently; Do not shake vigorously. (Same as: NovoLO G)"single patient use only" Stable for 28 days at room temperature.Expires in _ ____ days from Date Start Date: 11/23/14 Stop Date: 11/25/14 Status: Discontinued insulin aspart 6 unit, 0.06 mL, Route: SUB-Q, Drug form: SOLN, TID-Before Meals, Dosing Weight 143.182, kg, PRN Blood Glucose Results, Start date: 11/23/14 17:18:00, Duration: 30 day, Stop date: 12/23/14 17:17:00 Notes: Roll in palms of hands gently; Do not shake vigorously. (Same as: NovoLO G)"single patient use only" Stable for 28 days at room temperature.Expires in _ ____ days from Date Start Date: 11/23/14 Stop Date: 11/25/14 Status: Discontinued insulin aspart 2 unit, 0.02 mL, Route: SUB-Q, Drug form: SOLN, TID-Before Meals, Dosing Weight 143.182, kg, PRN Blood Glucose Results, Start date: 11/23/14 17:18:00, Duration: 30 day, Stop date: 12/23/14 17:17:00 Notes: Roll in palms of hands gently; Do not shake vigorously. (Same as: Renny Alarcon)"single patient use only" Stable for 28 days at room temperature.Expires in _ ____ days from Date Start Date: 11/23/14 Stop Date: 11/25/14 Status: Discontinued labetalol 10 mg, 2 mL, Route: IVP, Drug form: INJ, Q5Min, Dosing Weight 143.182, kg, PRN E levated BP, Start date: 11/23/14 11:08:00, Duration: 5 doses or times, Stop date : Limited # of times Notes: (Same as: Normodyne, Trandate)Push over 2 minutes Give bolus over 2-3 mi nutes. Start Date: 11/23/14 Stop Date: 11/23/14 Status: Discontinued Lactated Ringers Injection IV 1,000 mL 1,000 mL, Rate: 80 ml/hr, Infuse over: 12.5 hr, Route: IV, Dosing Weight 143.182 kg, Total Volume: 1,000, Start date: 11/24/14 13:51:00, Duration: 30 day, Stop date: 12/24/14 13:50:00 Start Date: 11/24/14 Stop Date: 11/25/14 Status: Discontinued Lactated Ringers Injection IV 1,000 mL 1,000 mL, Rate: 125 ml/hr, Infuse over: 8 hr, Route: IV, Dosing Weight 143.182 k g, Total Volume: 1,000, Start date: 11/23/14 13:37:00, Stop date: 11/24/14 13:36 :00 Start Date: 11/23/14 Stop Date: 11/24/14 Status: Completed meperidine 12.5 mg, 0.25 mL, Route: IVP, Drug form: INJ, Q30Min, Dosing Weight 143.182, kg, PRN Other -See Comment, For shivering, Start date: 11/23/14 11:08:00, Duration: 2 doses or times, Stop date: Limited # of times Notes: (Same As: Demerol) Start Date: 11/23/14 Stop Date: 11/23/14 Status: Discontinued metFORMIN-pioglitazone 850 mg-15 mg oral tablet 1 tab, PO, BID, 0 Refill(s) Start Date: 11/25/14 Stop Date: 11/25/14 Status: Discontinued metoprolol 5 mg/5 ml INJ 5 mg, 5 mL, Route: IVP, Drug form: INJ, Q6H, Dosing Weight 143.182, kg, Start da te: 11/23/14 18:00:00, Duration: 30 day, Stop date: 12/23/14 12:00:00 Notes: (Same as: Lopressor)Push over 2 minutes Start Date: 11/23/14 Stop Date: 11/25/14 Status: Discontinued midazolam 1 mg, 1 mL, Route: IVP, Drug form: INJ, Q5Min, Dosing Weight 143.182, kg, PRN An xiety, Start date: 11/23/14 11:08:00, Duration: 2 doses or times, Stop date: [place] ited # of times Notes: (Same as: Versed) MEDICATION WASTE Product Size: 2 mgProduct Was roger: ___ mg Start Date: 11/23/14 Stop Date: 11/23/14 Status: Discontinued morphine Sulfate 2 mg, 0.2 mL, Route: IVP, Drug form: INJ, Q5Min, Dosing Weight 143.182, kg, PRN Pain Score 4-6, Start date: 11/23/14 11:08:00, Duration: 5 doses or times, Stop date: Limited # of times Notes: (Same as:MORPhine Sulfate) Start Date: 11/23/14 Stop Date: 11/23/14 Status: Discontinued naloxone 0.04 mg, 0.1 mL, Route: IVP, Drug form: INJ, Q2MIN, Dosing Weight 143.182, kg, P RN Narcotic Reversal, Start date: 11/23/14 13:37:00, Duration: 30 day, Stop date : 12/23/14 13:36:00 Notes: Same as Narcan Start Date: 11/23/14 Stop Date: 11/25/14 Status: Discontinued naloxone 0.04 mg, 0.1 mL, Route: IVP, Drug form: INJ, Q2MIN, Dosing Weight 143.182, kg, P RN Narcotic Reversal, Start date: 11/23/14 11:08:00, Duration: 8 doses or times, Stop date: Limited # of times Notes: Same as Narcan Start Date: 11/23/14 Stop Date: 11/23/14 Status: Discontinued [place] 10/325 oral tablet 1 tab, PO, Q6H, 0 Refill(s) Start Date: 11/25/14 Stop Date: 11/25/14 Status: Discontinued Ofirmev 1,000 mg, 100 mL, Route: IV, Drug form: INJ, Q6H, Dosing Weight 143.182, kg, for > or=50 kg, Start date: 11/23/14 18:00:00, Duration: 2 day, Stop date: 11/25/14 12:00:00 Notes: Infuse over 15 minutesDo not exceed 4gm/day of acetaminophen MEDICAT ION WASTE Product Size: 1000 mgProduct Wasted: ___ mg Start Date: 11/23/14 Stop Date: 11/25/14 Status: Completed ondansetron 4 mg, 2 mL, Route: IVP, Drug form: INJ, Q6H, Dosing Weight 143.182, kg, PRN Naus ea & Vomiting, Start date: 11/23/14 13:37:00, Duration: 30 day, Stop date: 12/23/14 13:36:00 Notes: (Same as: Vicki) MEDICATION WASTE Product Size: 4 mgProduct Was roger: ___ mg Start Date: 11/23/14 Stop Date: 11/25/14 Status: Discontinued ondansetron 4 mg, 2 mL, Route: IVP, Drug form: INJ, ONCE, Dosing Weight 143.182, kg, PRN Regan sea & Vomiting, Start date: 11/23/14 11:08:00 Notes: (Same as: Vicki) MEDICATION WASTE Product Size: 4 mgProduct Was roger: ___ mg Start Date: 11/23/14 Stop Date: 11/23/14 Status: Discontinued Pepcid 20 mg, 2 mL, Route: IVP, Drug form: INJ, Q12H, Start date: 11/23/14 21:00:00, Du ration: 30 day, Stop date: 12/23/14 9:00:00 Notes: (Same as: Pepcid)Can be dilute in 5-10cc NS IVP: Slow IV push over at le ast 2 minutes. Start Date: 11/23/14 Stop Date: 11/25/14 Status: Discontinued potassium chloride 10 mEq oral tablet, extended release 10 mEq=1 tab, PO, BID, 0 Refill(s) Start Date: 11/25/14 Stop Date: 11/25/14 Status: Discontinued Protonix 40 mg, Route: IVP, Daily, Dosing Weight 143.182, kg, Start date: 11/24/14 9:00:0 0, Duration: 30 day, Stop date: 12/23/14 9:00:00 Start Date: 11/24/14 Stop Date: 11/23/14 Status: Deleted racepinephrine 11.25 mg, 0.5 mL, Route: NEB, Drug Form: SOLN, Dosing Weight 143.182, kg, PRN, P RN Shortness of breath, Start date: 11/23/14 11:08:00, Duration: 30 day, Stop da te: 12/23/14 11:07:00 Notes: (racepinephrine *2.25% inh 0.5ml SOLN) (Same as:S2) Start Date: 11/23/14 Stop Date: 11/23/14 Status: Discontinued Reglan 10 mg, 2 mL, Route: IVP, Drug form: INJ, Q6H, Dosing Weight 143.182, kg, PRN Regan sea & Vomiting, Start date: 11/24/14 17:36:00, Duration: 30 day, Stop date: 12/24/14 17:35:00 Notes: (Same as: Reglan) Start Date: 11/24/14 Stop Date: 11/25/14 Status: Discontinued simvastatin 40 mg oral tablet 40 mg=1 tab, PO, Bedtime, 0 Refill(s) Start Date: 11/25/14 Stop Date: 11/25/14 Status: Discontinued Sodium Chloride 0.9% IV 25 mL, Route: IV, Start date: 11/23/14 13:49:00, Duration: 30 day, Stop date: 13:48:00, PRN Line Flush Start Date: 11/23/14 Stop Date: 11/25/14 Status: Discontinued Sodium Chloride 0.9% IV 1,000 mL 1,000 mL, Rate: 125 ml/hr, Infuse over: 8 hr, Route: IV, Dosing Weight 143.182 k g, Total Volume: 1,000, Start date: 11/23/14 11:08:00, Duration: 30 day, Stop da te: 12/23/14 11:07:00 Start Date: 11/23/14 Stop Date: 11/23/14 Status: Discontinued tramadol 50 mg oral tablet 50 mg=1 tab, PO, Q6H, PRN See Nurse's Notes | Pain Score 3-6, # 40 tab, 0 Refill (s) Start Date: 11/23/14 Stop Date: 11/30/14 Status: Ordered tramadol 50 mg oral tablet 50 mg, 1 tab, Route: PO, Drug form: TAB, Q6H, Dosing Weight 143.182, kg, PRN See Nurse's Notes, Start date: 11/23/14 13:37:00, Stop date: 12/23/14 13:36:00, Pain Score 3-6 Notes: Not to exceed 400mg/day. (Same As: Ultram) Start Date: 11/23/14 Stop Date: 11/25/14 Status: Discontinued valsartan 160 mg oral tablet 160 mg=1 tab, PO, Daily, 0 Refill(s) Start Date: 11/25/14 Stop Date: 11/25/14 Status: Discontinued Results BLOOD BANK RESULTS Most recent to 03 26 oldest [Reference Range]: ABO/Rh O POS *Unknown* (11/23/14 10:11 AM) Antibody Scrn Negative (11/23/14 10:11 AM) ELECTROLYTES Most recent to 1 2 oldest [Reference Range]: Sodium Lvl [135-145 141 mEq/L 142 mEq/L mEq/L] (11/24/14 4:11 AM) (11/09/14 2:43 PM) Potassium Lvl 3.9 mEq/L 3.9 mEq/L [3.5-5.1 mEq/L] (11/24/14 4:11 AM) (11/09/14 2:43 PM) Chloride Lvl [95-109 106 mEq/L 108 mEq/L mEq/L] (11/24/14 4:11 AM) (11/09/14 2:43 PM) CO2 [24-32 mEq/L] 26 mEq/L 26 mEq/L (11/24/14 4:11 AM) (11/09/14 2:43 PM) AGAP [10.0-20.0 12.9 mEq/L 11.9 mEq/L mEq/L] (11/24/14 4:11 AM) (11/09/14 2:43 PM) CHEM PANEL Most recent to 1 2 oldest [Reference Range]: Creatinine Lvl 0.9 mg/dL 1.0 mg/dL [0.5-1.4 mg/dL] (11/24/14 4:11 AM) (11/09/14 2:43 PM) eGFR 67 mL/min/1.73m2 1 60 mL/min/1.73m2 2 *NA* *NA* (11/24/14 4:11 AM) (11/09/14 2:43 PM) BUN [7-22 mg/dL] 15 mg/dL 31 mg/dL (11/24/14 4:11 AM) *HI* (11/09/14 2:43 PM) B/C Ratio [6-25] 31 *HI* (11/09/14 2:43 PM) Glucose Lvl [70-99 124 mg/dL 66 mg/dL mg/dL] *HI* *LOW* (11/24/14 4:11 AM) (11/09/14 2:43 PM) Total Protein 8.0 g/dL [6.4-8.4 g/dL] (11/09/14 2:43 PM) Albumin Lvl [3.5-5.0 3.8 g/dL g/dL] (11/09/14 2:43 PM) Globulin [2.0-4.0 4.2 g/dL g/dL] *HI* (11/09/14 2:43 PM) A/G Ratio [0.7-1.6] 0.9 (11/09/14 2:43 PM) Calcium Lvl 8.3 mg/dL 8.8 mg/dL [8.5-10.5 mg/dL] *LOW* (11/09/14 2:43 PM) (11/24/14 4:11 AM) ALT [0-65 unit/L] 16 unit/L (11/09/14 2:43 PM) AST [0-37 unit/L] 9 unit/L (11/09/14 2:43 PM) Alk Phos [39-136 84 unit/L unit/L] (11/09/14 2:43 PM) Bili Total [0.2-1.3 0.3 mg/dL mg/dL] (11/09/14 2:43 PM) Vitamin D, 25-OH, 16 ng/mL Total [30-100 ng/mL] *LOW* (11/09/14 2:43 PM) 1Result Comment: The eGFR is calculated using the [...] from the National Kid[employer] Education Program ( NKDEP) which additionally recommends that when the eGFR is used in patients with extremes of body mass index for purposes of drug dosing, the eGFR should be mul tiplied by the estimated BMI. 2Result Comment: The eGFR is calculated using the [...] from the National Kid[employer] Education Program ( NKDEP) which additionally recommends that when the eGFR is used in patients with extremes of body mass index for purposes of drug dosing, the eGFR should be mul tiplied by the estimated BMI. CARDIAC ENZYMES Most recent to 1 2 oldest [Reference Range]: Total CK [12-191 210 unit/L unit/L] *HI* (11/23/14 6:47 PM) CK MB [0.5-3.6 2.2 ng/mL ng/mL] (11/23/14 6:47 PM) CK MB Index 1.0 [0.0-2.5] (11/23/14 6:47 PM) Troponin-I <0.02 ng/mL [0.00-0.40 ng/mL] (11/23/14 6:47 PM) SPECIAL CHEMISTRY Most recent to 1 2 oldest [Reference Range]: Hgb A1C [<=5.6 %] 6.4 % *HI* (11/09/14 2:43 PM) PARATHYROID PROFILE Most recent to 1 2 oldest [Reference Range]: PTH Intact 67.4 pg/mL [11.1-79.5 pg/mL] (11/09/14 2:43 PM) URINE AND STOOL Most recent to 1 2 oldest [Reference Range]: UA Turbidity [Clear] Slight *ABN* (11/09/14 2:43 PM) UA Color [Yellow] Yellow *NA* (11/09/14 2:43 PM) UA pH [5.0-8.0] 5.0 (11/09/14 2:43 PM) UA Spec Grav 1.015 [<=1.030] (11/09/14 2:43 PM) UA Glucose [Negative Negative mg/dL mg/dL] *NA* (11/09/14 2:43 PM) UA Blood [Negative] Negative (11/09/14 2:43 PM) UA Ketones [Negative Negative mg/dL mg/dL] *NA* (11/09/14 2:43 PM) UA Protein [Negative Negative mg/dL mg/dL] (11/09/14 2:43 PM) UA Urobilinogen <=1.0 mg/dL [0.1-1.0 mg/dL] *NA* (11/09/14 2:43 PM) UA Bili [Negative] Negative *NA* (11/09/14 2:43 PM) UA Leuk Est Negative [Negative] (11/09/14 2:43 PM) UA Nitrite Negative [Negative] (11/09/14 2:43 PM) UA WBC [0-5 /HPF] 1 /HPF (11/09/14 2:43 PM) UA Bacteria [None Occasional /HPF Seen /HPF] *NA* (11/09/14 2:43 PM) UA Sq Epi [Few /LPF] Few /LPF *NA* (11/09/14 2:43 PM) UA Hyal Cast [0-2 3 /LPF /LPF] *HI* (11/09/14 2:43 PM) UA Mucus [None Seen Few /LPF /LPF] *NA* (11/09/14 2:43 PM) Micro? Performed *NA* (11/09/14 2:43 PM) HEMATOLOGY Most recent to 1 2 oldest [Reference Range]: WBC [3.7-10.4 K/CMM] 8.6 K/CMM 7.8 K/CMM (11/24/14 4:11 AM) (11/09/14 2:43 PM) RBC [4.20-5.40 3.98 M/CMM 4.09 M/CMM M/CMM] *LOW* *LOW* (11/24/14 4:11 AM) (11/09/14 2:43 PM) Hgb [12.0-16.0 g/dL] 9.6 g/dL 9.9 g/dL *LOW* *LOW* (11/24/14 4:11 AM) (11/09/14 2:43 PM) Hct [36.0-48.0 %] 30.5 % 31.8 % *LOW* *LOW* (11/24/14 4:11 AM) (11/09/14 2:43 PM) MCV [80.0-98.0 fL] 76.7 fL 77.7 fL *LOW* *LOW* (11/24/14 4:11 AM) (11/09/14 2:43 PM) MCH [27.0-31.0 pg] 24.2 pg 24.1 pg *LOW* *LOW* (11/24/14 4:11 AM) (11/09/14 2:43 PM) MCHC [32.0-36.0 31.5 g/dL 31.0 g/dL g/dL] *LOW* *LOW* (11/24/14 4:11 AM) (11/09/14 2:43 PM) RDW [11.5-14.5 %] 17.7 % 17.3 % *HI* *HI* (11/24/14 4:11 AM) (11/09/14 2:43 PM) Platelet [133-450 163 K/CMM 247 K/CMM K/CMM] (11/24/14 4:11 AM) (11/09/14 2:43 PM) MPV [7.4-10.4 fL] 9.7 fL 9.1 fL (11/24/14 4:11 AM) (11/09/14 2:43 PM) Segs [45.0-75.0 %] 75.9 % 59.2 % *HI* (11/09/14 2:43 PM) (11/24/14 4:11 AM) Lymphocytes 15.5 % 27.7 % [20.0-40.0 %] *LOW* (11/09/14 2:43 PM) (11/24/14 4:11 AM) Monocytes [2.0-12.0 7.4 % 8.4 % %] (11/24/14 4:11 AM) (11/09/14 2:43 PM) Eosinophils [0.0-4.0 1.1 % 4.4 % %] (11/24/14 4:11 AM) *HI* (11/09/14 2:43 PM) Basophils [0.0-1.0 0.1 % 0.3 % %] (11/24/14 4:11 AM) (11/09/14 2:43 PM) Segs-Bands # 6.5 K/CMM 4.6 K/CMM [1.5-8.1 K/CMM] (11/24/14 4:11 AM) (11/09/14 2:43 PM) Lymphocytes # 1.3 K/CMM 2.2 K/CMM [1.0-5.5 K/CMM] (11/24/14 4:11 AM) (11/09/14 2:43 PM) Monocytes # [0.0-0.8 0.6 K/CMM 0.7 K/CMM K/CMM] (11/24/14 4:11 AM) (11/09/14 2:43 PM) Eosinophils # 0.1 K/CMM 0.3 K/CMM [0.0-0.5 K/CMM] (11/24/14 4:11 AM) (11/09/14 2:43 PM) Basophils # [0.0-0.2 0.0 K/CMM K/CMM] (11/09/14 2:43 PM) Microcyte [None 1+ 1+ Seen] *ABN* *ABN* (11/24/14 4:11 AM) (11/09/14 2:43 PM) PT [12.0-14.7 13.1 seconds seconds] (11/09/14 2:43 PM) INR [0.85-1.17] 0.99 (11/09/14 2:43 PM) PTT [22.9-35.8 31.3 seconds seconds] (11/09/14 2:43 PM) Immunizations No data available for this section Procedures Procedure Date Related Diagnosis Body Site Gastric bypass operation 11/23/14 Cholecystectomy Social History Social History Type Response Smoking Status Never smoker; Exposure to Tobacco Smoke None; Cigarette Smoking Last 365 Days No; Reg Smoking Cessation Counseling No Assessment and Plan Extracted from: Title: Surgery Note Author: Luís Brunner Date: 11/25/14 (Fellow) Progress Daily [facility] Completed: , NOV 25, 2014, 06:18 by Luís Brunner (Fellow) RM: [id number], [id number] (: [id number]) F Attending: Ismael Krause MDPhone: Service: General Surgery Service Reason for Admission: 4644 [address] OBESITY DIABETES HYPERTENSION Working DRG: Other factors influencing health status Code status: Full Code [Ordered]Current diet: Isolation: None Documented Allergies: quinapril, codeine SUBJECTIVE Pt doing better this AM than yesterday. Pain controlled. No further nausea, and no episodes of emesis. No F/S/C. Tolerating fulls. +amb, +urination. OBJECTIVE Gen: AAOx3, NAD CV: RRR Lungs: Symmetric expansion, non-labored Abd: Soft, ND, ATTP. No guarding or rebound. Inc sites C/D/I Ext: No C/C/E ASSESSMENT & EXAM 64 y/o female s/p LRYGB (POD #2) - Pain - HTN, NIDDM, HLD, ALEX PLAN & TREATMENT - Pain controlled with PO pain meds. - Tolerating full liquids. - Pertinent home meds restarted. - Dispo. Plan to D/C pt home later today.
--- NOTE | 2018-10-01 13:16 | Diagnostic Imaging Report ---
Exam: Left foot radiographs-3 views Clinical History: Status post fall. Comparison: None. Findings: No evidence of acute fracture or malalignment. There is soft tissue edema in the hindfoot and ankle. There are moderate interphalangeal joint and severe mid and hindfoot degenerative changes. Deformity at the talonavicular junction may represent sequela of prior trauma. There is a plantar calcaneal spur. Impression: No evidence of acute fracture or malalignment. Soft tissue edema in the hindfoot and ankle. Suggest ankle radiographs for further evaluation. Signed by: Dr. Kirstie Farfan MD on 10/01/2018 1:13 PM
--- NOTE | 2018-10-01 13:18 | Diagnostic Imaging Report ---
Exam: Left knee radiographs-3 views Clinical History: Status post fall. Comparison: None. Findings: No evidence of acute fracture, malalignment, or soft tissue abnormality. There is diffuse osteopenia. There are moderate medial compartment predominant tricompartmental degenerative changes. Impression: No acute radiographic abnormality. Signed by: Dr. Kirstie Farfan MD on 10/01/2018 1:15 PM
== END 2018-10-01 15:04 | disposition home or self-care (01) ==
LOC: ER 12:13
DX: S90.112A Contusion of left great toe without damage to nail, initial encounter (principal); S90.32XA Contusion of left foot, initial encounter; S80.02XA Contusion of left knee, initial encounter; W01.0XXA Fall on same level from slipping, tripping and stumbling without subsequent striking against object, initial encounter; Y92.008 Other place in unspecified non-institutional (private) residence as the place of occurrence of the external cause; I10 Essential (primary) hypertension; E11.9 Type 2 diabetes mellitus without complications; E78.5 Hyperlipidemia, unspecified
CPT/HCPCS: 99283

== ENCOUNTER 2021-01-24 06:35 | Emergency (ER) | payer MEDICARE, BC, OTHER ==
[~2021-01-24] VITALS: Ht 154.9 cm; Wt 97.5 kg
[2021-01-24] MEDS ORDERED: HYDROCODONE/APAP 5MG-325MG TAB PO ONE (08:00)
[2021-01-24] MEDS ORDERED: KETOROLAC TROMETHAMINE 60 MG/2 ML VIAL IM ONE (10:00)
[2021-01-24] MEDS ORDERED: HYDROCODON-ACE1 EA12 PO (10:00)
[2021-01-24 10:47] VITALS: BP 155/67
== END 2021-01-24 10:50 | disposition home or self-care (01) ==
LOC: ER 06:50
DX: S42.302A Unspecified fracture of shaft of humerus, left arm, initial encounter for closed fracture (principal); S09.90XA Unspecified injury of head, initial encounter; W01.0XXA Fall on same level from slipping, tripping and stumbling without subsequent striking against object, initial encounter; Y93.01 Activity, walking, marching and hiking; Y92.008 Other place in unspecified non-institutional (private) residence as the place of occurrence of the external cause; I10 Essential (primary) hypertension; E11.9 Type 2 diabetes mellitus without complications; E78.5 Hyperlipidemia, unspecified; E78.00 Pure hypercholesterolemia, unspecified; M06.9 Rheumatoid arthritis, unspecified
CPT/HCPCS: 29125; 70450; 71045; 72125; 73030; 73060; 73080; 73110; 99284; J1885

== ENCOUNTER 2021-01-28 17:23 | Emergency (ER) | payer MEDICARE, BC ==
[~2021-01-28] VITALS: Ht 154.9 cm; Wt 97.5 kg
[~2021-01-28 17:23] MED LIST changes: +HYDROCODON-ACE1 EA12 PO
== END 2021-01-28 18:51 | disposition home or self-care (01) ==
LOC: ER 17:47
DX: S60.222A Contusion of left hand, initial encounter (principal); I10 Essential (primary) hypertension; E11.9 Type 2 diabetes mellitus without complications; E78.5 Hyperlipidemia, unspecified; Z88.5 Allergy status to narcotic agent
CPT/HCPCS: 99282